=== PATIENT | male | born 1995 | race Two or more races ===

== ENCOUNTER 2019-08-30 23:23 | Emergency (ER) | payer OTHER ==
[~2019-08-30] VITALS: Ht 177.8 cm; Wt 100.7 kg
[2019-08-31] MEDS ORDERED: ZYNCOF 20-400120 ML PO (03:05)
[2019-08-31] MEDS ORDERED: ALLEGRA-D 12 H1 EACH PO ×2 (03:05)
== END 2019-08-31 03:13 | disposition home or self-care (01) ==
LOC: ER 23:23
DX: B34.9 Viral infection, unspecified (principal)

== ENCOUNTER 2020-09-21 09:33 | Emergency (ER) | payer OTHER ==
[~2020-09-21] VITALS: Ht 177.8 cm; Wt 89.8 kg
[~2020-09-21 09:33] MED LIST: ALLEGRA-D 12 H1 EACH PO; ZYNCOF 20-400120 ML PO
[2020-09-21] MEDS ORDERED: INTESTINEX680 M1 PO (13:02)
[2020-09-21] MEDS ORDERED: AMOX-CLAV 875-1 EACH PO (13:02)
[2020-09-21] MEDS ORDERED: PERCOCET 5-3251 EACH PO (13:02)
[2020-09-21] MEDS ORDERED: CELEBREX200MG PO (13:02)
[2020-10-10] MEDS ORDERED: ACETAMINOPHEN500 M2 (13:46)
== END 2020-09-21 13:13 ==
LOC: ER 09:33
DX: S60.051A Contusion of right little finger without damage to nail, initial encounter (principal); S62.636A Displaced fracture of distal phalanx of right little finger, initial encounter for closed fracture; W20.8XXA Other cause of strike by thrown, projected or falling object, initial encounter; Y93.89 Activity, other specified; Y92.89 Other specified places as the place of occurrence of the external cause